=== PATIENT | male | born 1990 | race Caucasian/White ===

== ENCOUNTER → 2018-03-25 | Emergency (ER) | payer SELFPAY ==
[~2018-03-25] VITALS: Ht 175.3 cm; Wt 100.0 kg
[~2018-03-25] MED LIST: HYDROCODONE/ACETAMINOPHEN 5-325 MG TABLET PO ONE
[2018-03-25 07:49] VITALS: BP 145/99
== END | disposition home or self-care (01) ==
LOC: EDSEX 07:42 → EMS 07:42
DX: S52.124A Nondisplaced fracture of head of right radius, initial encounter for closed fracture (principal); W05.1XXA Fall from non-moving nonmotorized scooter, initial encounter; Y93.89 Activity, other specified; Y92.89 Other specified places as the place of occurrence of the external cause; Y99.8 Other external cause status
CPT/HCPCS: 29105